=== PATIENT | female | born 1995 | race Caucasian/White ===

== ENCOUNTER 2020-08-20 09:13 | Emergency (ER) | payer OTHER, SELFPAY ==
--- NOTE | ~2020-08-20 | US_ITS ---
EXAMINATION: ULTRASOUND APPENDIX. CLINICAL INFORMATION: Right-sided lower abdominal pain. Evaluate appendix. COMPARISON: None TECHNIQUE: Limited right lower quadrant imaging of abdomen was performed FINDINGS: Appendix is not visualized. There are paraesophageal bowel seen. The right ovary is visualized and appears unremarkable. Measures 4.4 x 2.6 x 2.6 cm. Right iliac vessels are patent. US/US appendix IMPRESSION: Appendix is not visualized. There is no mass or free fluid. There are peristalsing bowel loops visualized.
--- NOTE | ~2020-08-20 | US_ITS ---
EXAMINATION: PELVIC ULTRASOUND CLINICAL INFORMATION: Right-sided pain COMPARISON: None TECHNIQUE: Transabdominal and transvaginal pelvic ultrasound was performed. Transvaginal exam was performed for better visualization of the uterus and ovaries. FINDINGS: The uterus is anteverted and measures 5.4 x 2.6 x 3.3 cm in dimension. There is an IUD in the uterus in expected position. The endometrium does not appear thickened measuring 3 mm. No focal uterine lesion is seen. The cervix is normal appearing. The ovaries are normal-appearing. The right ovary measures 3.8 x 2.1 x 1.9 cm the left ovary measures 3.8 x 1.8 x 2.2 cm. There is no fluid in the pelvis. US/US pelvic and transvaginal IMPRESSION: IUD in the uterus in satisfactory position. Normal-appearing ovaries.
[2020-08-20 09:23] VITALS: BP 123/59; PULSE 70; RESP 16; TEMP 37.1; O2SAT 96; BMI 34.4
[2020-08-20] MEDS: 0.9 % Sodium Chloride 1,000 ML 999 ML IVCONT (10:55)
[2020-08-20] MEDS: ondansetron HCL 4 MG/2 ML VIAL IVPUSH (10:55)
[2020-08-20 10:56] VITALS: BP 121/50; PULSE 56; RESP 16; O2SAT 96
[2020-08-20 13:00] LABS: MANUAL DIFF FLAG NO
[2020-08-20 13:06] LABS: Basophils Percent Auto 0.2 % (0-2); Eosinophils Percent Auto 0.3 % (0-4); Hematocrit 44.1 % (37-47); Hemoglobin 13.7 g/dl (12.0-16.0); Imm Gran Abs Auto 0.04 X10*3/uL (0.00-0.03); Imm Gran Pct Auto 0.4 % (0.0-0.4); Lymphocytes Percent Auto 19.8 % (20-40); Mean Corpuscular HGB Conc 31.1 g/dl (31.0-35.0); Mean Corpuscular Hemoglobin 26.3 pg (27.0-33.0); Mean Corpuscular Volume 84.6 fL (80-98); Mean Platelet Volume 10.6 fL (9.4-12.3); Monocytes Absolute Auto 0.6 X10*3/uL (0.1-1.2); Monocytes Percent Auto 5.6 % (2-11); Neutrophils Absolute Auto 7.3 X10*3/uL (2.0-8.3); Neutrophils Percent Auto 73.7 % (45-73); Platelet Count 326 X10*3/uL (160-400); Red Blood Count 5.21 X10*6/uL (4.20-5.50); Red Cell Distribution Width 13.6 % (11.0-16.0); White Blood Count 9.9 X10*3/uL (4.8-10.8)
[2020-08-20 13:28] LABS: Alanine Aminotransferase 20 U/L (0-31); Albumin Level 4.5 g/dL (3.5-5.0); Alkaline Phosphatase 65 U/L (39-117); Anion Gap 13 (12-20); Aspartate Amino Transferase 14 U/L (5-31); Bilirubin Direct 0.3 mg/dL (0.0-0.5); Bilirubin Total 0.7 mg/dL (0.0-1.0); Blood Urea Nitrogen 9 mg/dL (9-16); Calcium 9.4 mg/dL (8.4-10.2); Carbon Dioxide 32 mmol/L (22-29); Chloride 99 mmol/L (96-108); Creatinine Clr Calc Pharmacy 140.7; Estimated Glomerular Filt Rate > 60; Glucose Random 96 mg/dL (60-115); Lipase 13 U/L (8-78); Potassium 4.4 mmol/L (3.3-5.1); Sodium 140 mmol/L (135-145); Total Protein 7.4 g/dL (6.5-8.0)
[2020-08-20 13:47] LABS: Glucose Urine UA NEG (NEG); Leukocyte Esterase Urine NEG (NEG); Nitrite Urine NEG (NEG); Urine Blood NEG (NEG); Urine Ketones NEG (NEG); Urine Protein NEG (NEG-TRACE)
[2020-08-20 13:50] LABS: Appearance Urine CLEAR; Color Urine YELLOW; UPreg QC Valid YES; Urine Pregnancy NEGATIVE (NEGATIVE)
[2020-08-20 14:01] VITALS: BP 109/59; PULSE 70; RESP 16; O2SAT 96
--- NOTE | 2020-08-20 14:08 | ED.ABDPAIN ---
HPI - Abdominal Pain General Chief Complaint: Abdominal Pain <PRIYANKA Davidson Last Filed: 08/24/20 09:18> Stated Complaint: ABD PAIN <PRIYANKA Davidson Last Filed: 08/24/20 09:18> Time Seen by Provider: 08/20/20 09:25 <PRIYANKA Davidson Last Filed: 08/24/20 09:18> History of Present Illness HPI narrative: Patient complains of 24 hours of nausea vomiting and right sided abdominal pain, she has had no appetite she has had no diarrhea no burning with urination, pain is crampy and waxing and waning <PRIYANKA Davidson Last Filed: 08/24/20 09:18> Related Data Home Medications: Previous Rx's Medication Instructions Recorded ondansetron HCl [Zofran] 4 mg PO Q6H PRN #10 tab 08/20/20 <PRIYANKA Davidson Last Filed: 08/24/20 09:18> Allergies/Adverse Reactions: Allergies Allergy/AdvReac Type Severity Reaction Status Date / Time azithromycin Allergy Mild Rash Verified 08/20/20 09:52 <PRIYANKA Davidson Last Filed: 08/24/20 09:18> Review of Systems Review of Systems Positive for right-sided abdominal pain as well as nausea and vomiting negatives are no fever no chills no dizziness no weakness no confusion no fainting no feeling faint no headache no neck pain no chest pain no shortness of breath no diarrhea no dysuria no burning with urination or frequent urination no rash no numbness or weakness <PRIYANKA Davidson Last Filed: 08/24/20 09:18> Physical Exam Vital Signs: Vital Signs: Last Vital Signs Temp 98.7 F 08/20/20 09:23 Pulse 70 08/20/20 14:01 Resp 16 08/20/20 14:01 BP 109/59 L 08/20/20 14:01 Pulse Ox 96 08/20/20 14:01 Body Mass Index 34.4 <PRIYANKA Davidson Last Filed: 08/24/20 09:18> Vital Signs: Last Vital Signs Temp 98.7 F 08/20/20 09:23 Pulse 70 08/20/20 14:01 Resp 16 08/20/20 14:01 BP 109/59 L 08/20/20 14:01 Pulse Ox 96 08/20/20 14:01 Body Mass Index 34.4 <George Main MD - Last Filed: 09/03/20 15:34> General appearance is no acute distress A&O x3, cooperative The eyes are anicteric with no pallor The pharynx is mildly dry otherwise normal The chest is clear to auscultation bilaterally full symmetrical breath sounds Heart rate and rhythm regular no murmur Abdomen had mild right low abdominal tenderness without rebound or guarding, there was no other tenderness Extremities for range of motion x4 Skin no rash Neuro no focal deficits <PRIYANKA Davidson - Last Filed: 08/24/20 09:18> Course Course Course Narrative: White count was normal, ultrasound did not show any ovarian pathology, appendix was not visualized A repeat exam of the abdomen after the patient had been in the ER for 3 hours and had had Zofran was completely nontender there is no McBurney's point tenderness the previously found right lower abdominal tenderness is gone there is no rebound no guarding At this point there is no sign of an active appendicitis infection and patient is given verbal instructions to return if she develops any return of her right low abdominal pain, she has shown where the appendix is and she has clear instructions to come back if there is pain when she presses there <PRIYANKA Davidson - Last Filed: 08/24/20 09:18> I have reviewed the chart <George Main MD - Last Filed: 09/03/20 15:34> MDM - Abdominal Pain Lab Data Result diagrams: : 08/20/20 10:54 08/20/20 10:54 <PRIYANKA Davidson - Last Filed: 08/24/20 09:18> Labs: Lab Results 08/20/20 08/20/20 08/20/20 Range/Units 10:54 10:54 13:33 WBC 9.9 (4.8-10.8) X10*3/uL RBC 5.21 (4.20-5.50) X10*6/uL Hgb 13.7 (12.0-16.0) g/dl Hct 44.1 (37-47) % MCV 84.6 (80-98) fL MCH 26.3 L (27.0-33.0) pg MCHC 31.1 (31.0-35.0) g/dl RDW 13.6 (11.0-16.0) % Plt Count 326 (160-400) X10*3/uL MPV 10.6 (9.4-12.3) fL Immature Gran % (Auto) 0.4 (0.0-0.4) % Neut % (Auto) 73.7 H (45-73) % Lymph % (Auto) 19.8 L (20-40) % [place] % (Auto) 5.6 (2-11) % Eos % (Auto) 0.3 (0-4) % Baso % (Auto) 0.2 (0-2) % Lymph # (Auto) 2.0 (1.2-4.9) X10*3/uL [place] # (Auto) 0.6 (0.1-1.2) X10*3/uL Eos # (Auto) 0.0 (0.0-0.4) X10*3/uL Baso # (Auto) 0.0 (0.0-0.2) X10*3/uL Abs Immat Gran (auto) 0.04 H (0.00-0.03) X10*3/uL Absolute Neuts (auto) 7.3 (2.0-8.3) X10*3/uL Absolute Nucleated RBC 0.000 (0.0-0.012) X10*3/uL Nucleated RBC % (auto) 0.0 (0.0-0.2) /100WBC Sodium 140 (135-145) mmol/L Potassium 4.4 (3.3-5.1) mmol/L Chloride 99 (96-108) mmol/L Carbon Dioxide 32 H (22-29) mmol/L Anion Gap 13 (12-20) BUN 9 (9-16) mg/dL Creatinine 0.73 (0.5-1.4) mg/dL Estim Creat Clear Calc 140.7 Estimated GFR > 60 Random Glucose 96 (60-115) mg/dL Calcium 9.4 (8.4-10.2) mg/dL Total Bilirubin 0.7 (0.0-1.0) mg/dL Direct Bilirubin 0.3 (0.0-0.5) mg/dL AST 14 (5-31) U/L ALT 20 (0-31) U/L Alkaline Phosphatase 65 (39-117) U/L Total Protein 7.4 (6.5-8.0) g/dL Albumin 4.5 (3.5-5.0) g/dL Lipase 13 (8-78) U/L Urine Color YELLOW Urine Appearance CLEAR Urine pH 7.0 (5.0-8.0) Ur Specific Cecil 1.010 (1.005-1.025) Urine Protein NEG (NEG-TRACE) MG/DL Urine Glucose (UA) NEG (NEG) MG/DL Urine Ketones NEG (NEG) MG/DL Urine Blood NEG (NEG) Urine Nitrite NEG (NEG) Ur Leukocyte Esterase NEG (NEG) Urine Test (NEGATIVE) 08/20/20 Range/Units 13:33 WBC (4.8-10.8) X10*3/uL RBC (4.20-5.50) X10*6/uL Hgb (12.0-16.0) g/dl Hct (37-47) % MCV (80-98) fL MCH (27.0-33.0) pg MCHC (31.0-35.0) g/dl RDW (11.0-16.0) % Plt Count (160-400) X10*3/uL MPV (9.4-12.3) fL Immature Gran % (Auto) (0.0-0.4) % Neut % (Auto) (45-73) % Lymph % (Auto) (20-40) % [place] % (Auto) (2-11) % Eos % (Auto) (0-4) % Baso % (Auto) (0-2) % Lymph # (Auto) (1.2-4.9) X10*3/uL [place] # (Auto) (0.1-1.2) X10*3/uL Eos # (Auto) (0.0-0.4) X10*3/uL Baso # (Auto) (0.0-0.2) X10*3/uL Abs Immat Gran (auto) (0.00-0.03) X10*3/uL Absolute Neuts (auto) (2.0-8.3) X10*3/uL Absolute Nucleated RBC (0.0-0.012) X10*3/uL Nucleated RBC % (auto) (0.0-0.2) /100WBC Sodium (135-145) mmol/L Potassium (3.3-5.1) mmol/L Chloride (96-108) mmol/L Carbon Dioxide (22-29) mmol/L Anion Gap (12-20) BUN (9-16) mg/dL Creatinine (0.5-1.4) mg/dL Estim Creat Clear Calc Estimated GFR Random Glucose (60-115) mg/dL Calcium (8.4-10.2) mg/dL Total Bilirubin (0.0-1.0) mg/dL Direct Bilirubin (0.0-0.5) mg/dL AST (5-31) U/L ALT (0-31) U/L Alkaline Phosphatase (39-117) U/L Total Protein (6.5-8.0) g/dL Albumin (3.5-5.0) g/dL Lipase (8-78) U/L Urine Color Urine Appearance Urine pH (5.0-8.0) Ur Specific Cecil (1.005-1.025) Urine Protein (NEG-TRACE) MG/DL Urine Glucose (UA) (NEG) MG/DL Urine Ketones (NEG) MG/DL Urine Blood (NEG) Urine Nitrite (NEG) Ur Leukocyte Esterase (NEG) Urine Test NEGATIVE (NEGATIVE) <PRIYANKA Davidson - Last Filed: 08/24/20 09:18> Lab Results 08/20/20 08/20/20 08/20/20 Range/Units 10:54 10:54 13:33 WBC 9.9 (4.8-10.8) X10*3/uL RBC 5.21 (4.20-5.50) X10*6/uL Hgb 13.7 (12.0-16.0) g/dl Hct 44.1 (37-47) % MCV 84.6 (80-98) fL MCH 26.3 L (27.0-33.0) pg MCHC 31.1 (31.0-35.0) g/dl RDW 13.6 (11.0-16.0) % Plt Count 326 (160-400) X10*3/uL MPV 10.6 (9.4-12.3) fL Immature Gran % (Auto) 0.4 (0.0-0.4) % Neut % (Auto) 73.7 H (45-73) % Lymph % (Auto) 19.8 L (20-40) % [place] % (Auto) 5.6 (2-11) % Eos % (Auto) 0.3 (0-4) % Baso % (Auto) 0.2 (0-2) % Lymph # (Auto) 2.0 (1.2-4.9) X10*3/uL [place] # (Auto) 0.6 (0.1-1.2) X10*3/uL Eos # (Auto) 0.0 (0.0-0.4) X10*3/uL Baso # (Auto) 0.0 (0.0-0.2) X10*3/uL Abs Immat Gran (auto) 0.04 H (0.00-0.03) X10*3/uL Absolute Neuts (auto) 7.3 (2.0-8.3) X10*3/uL Absolute Nucleated RBC 0.000 (0.0-0.012) X10*3/uL Nucleated RBC % (auto) 0.0 (0.0-0.2) /100WBC Sodium 140 (135-145) mmol/L Potassium 4.4 (3.3-5.1) mmol/L Chloride 99 (96-108) mmol/L Carbon Dioxide 32 H (22-29) mmol/L Anion Gap 13 (12-20) BUN 9 (9-16) mg/dL Creatinine 0.73 (0.5-1.4) mg/dL Estim Creat Clear Calc 140.7 Estimated GFR > 60 Random Glucose 96 (60-115) mg/dL Calcium 9.4 (8.4-10.2) mg/dL Total Bilirubin 0.7 (0.0-1.0) mg/dL Direct Bilirubin 0.3 (0.0-0.5) mg/dL AST 14 (5-31) U/L ALT 20 (0-31) U/L Alkaline Phosphatase 65 (39-117) U/L Total Protein 7.4 (6.5-8.0) g/dL Albumin 4.5 (3.5-5.0) g/dL Lipase 13 (8-78) U/L Urine Color YELLOW Urine Appearance CLEAR Urine pH 7.0 (5.0-8.0) Ur Specific Cecil 1.010 (1.005-1.025) Urine Protein NEG (NEG-TRACE) MG/DL Urine Glucose (UA) NEG (NEG) MG/DL Urine Ketones NEG (NEG) MG/DL Urine Blood NEG (NEG) Urine Nitrite NEG (NEG) Ur Leukocyte Esterase NEG (NEG) Urine Test (NEGATIVE) 08/20/20 Range/Units 13:33 WBC (4.8-10.8) X10*3/uL RBC (4.20-5.50) X10*6/uL Hgb (12.0-16.0) g/dl Hct (37-47) % MCV (80-98) fL MCH (27.0-33.0) pg MCHC (31.0-35.0) g/dl RDW (11.0-16.0) % Plt Count (160-400) X10*3/uL MPV (9.4-12.3) fL Immature Gran % (Auto) (0.0-0.4) % Neut % (Auto) (45-73) % Lymph % (Auto) (20-40) % [place] % (Auto) (2-11) % Eos % (Auto) (0-4) % Baso % (Auto) (0-2) % Lymph # (Auto) (1.2-4.9) X10*3/uL [place] # (Auto) (0.1-1.2) X10*3/uL Eos # (Auto) (0.0-0.4) X10*3/uL Baso # (Auto) (0.0-0.2) X10*3/uL Abs Immat Gran (auto) (0.00-0.03) X10*3/uL Absolute Neuts (auto) (2.0-8.3) X10*3/uL Absolute Nucleated RBC (0.0-0.012) X10*3/uL Nucleated RBC % (auto) (0.0-0.2) /100WBC Sodium (135-145) mmol/L Potassium (3.3-5.1) mmol/L Chloride (96-108) mmol/L Carbon Dioxide (22-29) mmol/L Anion Gap (12-20) BUN (9-16) mg/dL Creatinine (0.5-1.4) mg/dL Estim Creat Clear Calc Estimated GFR Random Glucose (60-115) mg/dL Calcium (8.4-10.2) mg/dL Total Bilirubin (0.0-1.0) mg/dL Direct Bilirubin (0.0-0.5) mg/dL AST (5-31) U/L ALT (0-31) U/L Alkaline Phosphatase (39-117) U/L Total Protein (6.5-8.0) g/dL Albumin (3.5-5.0) g/dL Lipase (8-78) U/L Urine Color Urine Appearance Urine pH (5.0-8.0) Ur Specific Cecil (1.005-1.025) Urine Protein (NEG-TRACE) MG/DL Urine Glucose (UA) (NEG) MG/DL Urine Ketones (NEG) MG/DL Urine Blood (NEG) Urine Nitrite (NEG) Ur Leukocyte Esterase (NEG) Urine Test NEGATIVE (NEGATIVE) <George Main MD - Last Filed: 09/03/20 15:34> Discharge Plan Discharge Clinical Impression: Vomiting, Abdominal pain <PRIYANKA Davidson - Last Filed: 08/24/20 09:18> Patient Disposition: Home, Self-Care <PRIYANKA Davidson - Last Filed: 08/24/20 09:18> Additional Instructions: Your workup did not reveal any dangerous infection or problem at this time You may have a viral stomach bug or you may have eaten something that disagreed with you At 1st you did have tenderness when I pressed on right low abdomen so we did a workup to evaluate for appendicitis As your repeat abdominal exam did not show any tenderness and you are now able to eat and feeling very improved I do not think this is appendicitis I showed you where your appendix is and if the pain returns or it hurts when you press in the area or if vomiting returns uncontrolled or any worse condition or any concerns return to the ER for recheck any time <PRIYANKA Davidson - Last Filed: 08/24/20 09:18> Prescriptions: New ondansetron HCl [Zofran] 4 mg tablet 4 mg PO Q6H PRN (Reason: nausea and vomiting) Qty: 10 RF: 0 <PRIYANKA Davidson - Last Filed: 08/24/20 09:18> Stand Alone Forms: Work/School Release <PRIYANKA Davidson - Last Filed: 08/24/20 09:18> Interventions: ED Discharge Assessment Last Done: 08/20/20 14:38 <PRIYANKA Davidson - Last Filed: 08/24/20 09:18> Discharge Date/Time: 08/20/20 14:39 <PRIYANKA Davidson - Last Filed: 08/24/20 09:18> [facility] Past Medical History Source: nursing notes reviewed <PRIYANKA Davidson - Last Filed: 08/24/20 09:18> Social History Social History: Social History Alcohol intake: never Smoking Status: Never smoker Use of substances other than those prescribed or required for medical reasons: Yes Substance Use Type: Marijuana Advance Directives: Yes Advance Directives Information Provided: Yes Advance Directives on File: No <PRIYANKA Davidson - Last Filed: 08/24/20 09:18>
== END 2020-08-20 14:39 | disposition home or self-care (01) ==
PROVIDERS: Physician Assistant Medical; Emergency Provider Emergency Medicine
DX: R11.2 Nausea with vomiting, unspecified (principal); R10.9 Unspecified abdominal pain; F12.90 Cannabis use, unspecified, uncomplicated
CPT/HCPCS: 36415; 76705; 76830; 76856; 80048; 80076; 81003; 81025; 83690; 85025; 96361; 96374; 96376; 99284; J2405